=== PATIENT | female | born 1940 | race Caucasian/White ===

== ENCOUNTER → 2016-09-16 | Outpatient (CLI) | payer MEDICARE, OTHER | END | disposition home or self-care (01) | LOC: GMAB 11:13 | PROVIDERS: ATTEND Family Medicine | DX: E03.9 Hypothyroidism, unspecified (principal) ==

== ENCOUNTER → 2016-09-23 | Outpatient (CLI) | payer MEDICARE, OTHER ==
[~2016-09-23] MED LIST: LEVALBUTEROL NEBS 0.63 MG/3 ML VIAL NEB ONE
== END ==
LOC: RESP 10:04
PROVIDERS: ATTEND Family Medicine
DX: J45.30 Mild persistent asthma, uncomplicated (principal)
CPT/HCPCS: 94060; J7614

== ENCOUNTER → 2016-10-09 | Outpatient (CLI) | payer MEDICARE, OTHER ==
--- NOTE | 2016-10-09 16:31 | MAM ---
History: Well woman exam. Date of exam: 10/09/2016 Services provided: Bilateral full field digital screening mammography. CAD, the images were reviewed with R2 computer aided detection. FINDINGS: Glandular tissue is near completely fatty involuted. Comparison with 2012 exam. No dominant mass, architectural distortion or clustered microcalcification. IMPRESSION: Benign exam. Recommendation: Routine annual exam. BIRAD CATEGORY: 2 BENIGN Electronically signed by: Lidia Ridre MD 10/09/2016 4:31 PM CDT Workstation: [id number]
== END | disposition home or self-care (01) ==
LOC: MAMMO 10:57
PROVIDERS: ATTEND Family Medicine
DX: Z12.31 Encounter for screening mammogram for malignant neoplasm of breast (principal)

== ENCOUNTER → 2017-09-20 | Outpatient (CLI) | payer MEDICARE, OTHER | LOC: GMAB 10:45 | PROVIDERS: ATTEND Family Medicine | DX: E03.9 Hypothyroidism, unspecified (principal); I10 Essential (primary) hypertension; E78.2 Mixed hyperlipidemia ==

== ENCOUNTER → 2017-10-25 | Outpatient (CLI) | payer MEDICARE, OTHER ==
--- NOTE | 2017-10-28 15:45 | MAM ---
EXAM DESCRIPTION: 3D Screening BILATERAL : Digital Mammography. CLINICAL HISTORY: 77 years Female SCREENING . No complaints. No family history of breast cancer. Childbirth. Postmenopausal. HRT 5 or more years ago. Bilateral breast reduction.. COMPARISON: 2-D digital screening bilateral study 10/09/2016. Report from prior examination also reviewed. TECHNIQUE: Bilateral CC and MLO projection full-field images, 3-D tomosynthesis digital mammographic technique. CAD not utilized. FINDINGS: The breast parenchymal density pattern is: Almost entirely fatty. No skin thickening or nipple retraction. Bilateral solitary microcalcifications. Left axillary lymph nodes. Stable mass with well-defined, minimally lobulated borders at the 530 position of the anterior third of the left breast. No focal, stellate mass or density, focal asymmetry , and no suspicious microcalcifications bilaterally. Stable mammograms compared to prior study, taking into account differences in mammographic technique IMPRESSION: BI-RADS CATEGORY: 2 - BENIGN FINDINGS. FOLLOW UP: Routine digital bilateral screening, one year interval from October 2017. Written communication explaining the IMPRESSION and follow-up, will be mailed to the patient and referring health care provider. According to the [employer], yearly mammograms are recommended starting at age 40 and continuing as long as a woman is in good health. Any breast change noted on a breast self-exam should be reported promptly to the patient's healthcare provider. Breast MRI is recommended for women with an approximately 20-25% or greater lifetime risk of breast cancer, including women with a strong family history of breast or ovarian cancer and women who have been treated for Hodgkin's disease. A negative mammographic report should not delay tissue diagnosis in patients with significant clinical history or physical findings. Extremely dense breast tissue limits the sensitivity of digital mammography. Electronically signed by: Marco A Auguste MD 10/28/2017 3:44 PM CDT
== END ==
LOC: MAMMO 10:30
PROVIDERS: ATTEND Family Medicine
DX: Z12.31 Encounter for screening mammogram for malignant neoplasm of breast (principal)

== ENCOUNTER → 2018-02-10 | Outpatient (CLI) | payer MEDICARE, OTHER | LOC: GMAE 17:38 | PROVIDERS: ATTEND Family Medicine | DX: E11.9 Type 2 diabetes mellitus without complications (principal); L20.9 Atopic dermatitis, unspecified; L29.8 Other pruritus; L85.3 Xerosis cutis ==

== ENCOUNTER 2018-09-02 20:37 | Observation (INO) | payer MEDICARE, OTHER ==
[2018-09-02] MEDS ORDERED: SODIUM CHLORIDE 0.9% 1000ML 1,000 ML IVS ONE (21:51)
[2018-09-02] MEDS ORDERED: PANTOPRAZOLE SODIUM IV 40 MG VIAL IV ONE (22:25)
[2018-09-02] MEDS ORDERED: SUCRALFATE 1 GM/10 ML 1 GM UD PO ONE (22:25)
[2018-09-02] MEDS ORDERED: cefTRIAXone SODIUM 1 GM in SODIUM CHL 0.9% 50ML MIN-BAG+ 50 ML IVPB ONE (22:55)
[2018-09-02] MEDS ORDERED: CIPROFLOXACIN 500 MG TAB PO ONE (22:55)
[2018-09-02] MEDS ORDERED: cefTRIAXone SODIUM 1 GM VIAL ONE (22:59)
[2018-09-02] MEDS ORDERED: SODIUM CHL 0.9% 50ML MIN-BAG+ 50 ML IVPB ONE (23:00)
--- NOTE | 2018-09-02 23:54 | ED.PDOC ---
History of Present Illness - General Chief Complaint: Syncope/Near Syncope Stated Complaint: passed out at home Time Seen by Provider: 09/02/18 20:39 Source: patient Exam Limitations: no limitations - History of Present Illness Initial Comments: the patient is a 78-year-old female brought in by her daughter secondary to a syncopal episode that lasted approximately 30 seconds area the episode was preceded by feeling flushed with some abdominal cramping and dizzy. Daughter reports that she did go all the way out and did have very brief seizure-like activity. No history of any seizures in the past. She has had approximately 3 or 4 other episodes of syncope and the last 2-3 years. They have never been able to pin down the source for them. She is neurologically intact. She is pleasant and cooperative and interactive. No distress at this time. She does see Dr. Sheets. No history of any really significant arrhythmia. She does still have some very mild epigastric discomfort but no palpable mass. No rebound or peritoneal signs. No history of anymelena or gerhard GI bleed. Timing/Duration: other Severity: moderate Improving Factors: nothing Worsening Factors: nothing Associated Symptoms: syncope Allergies/Adverse Reactions: Allergies Penicillins Allergy (Verified 09/02/18 22:57) Sulfa Antibiotics Allergy (Verified 09/02/18 22:57) narcotics Adverse Reaction (Uncoded 09/02/18 22:57) Review of Systems - Review of Systems Constitutional: States: malaise EENTM: States: no symptoms reported Respiratory: States: no symptoms reported Cardiology: States: no symptoms reported Gastrointestinal/Abdominal: States: see HPI Genitourinary: States: no symptoms reported Musculoskeletal: States: no symptoms reported Skin: States: no symptoms reported Neurological: States: see HPI Endocrine: States: no symptoms reported All other Systems: No Change from Baseline Past Medical History (General) - Patient Medical History Hx Seizures: No Hx Stroke: No Hx Dementia: No Hx Asthma: Yes Hx of COPD: No Hx Cardiac Disorders: Yes Hx Congestive Heart Failure: No Hx Pacemaker: No Hx Hypertension: Yes Hx Thyroid Disease: Yes Hx Diabetes: Yes Hx Gastroesophageal Reflux: No Hx Renal Disease: No Hx Cancer: Yes - CLL that did not require sx Hx of HIV: No Hx Hepatitis C: No Hx MRSA: No Surgical History: cholecystectomy, tonsillectomy, Hysterectomy, other - Vaccination History Hx Tetanus, Diphtheria Vaccination: Yes Hx Influenza Vaccination: Yes Immunizations Up to Date: Yes - Social History Hx Tobacco Use: No Hx Alcohol Use: No Hx Substance Use: No Hx Substance Use Treatment: No Hx Depression: No Feels Threatened In Home Enviroment: No Feels Threatened In a Relationship: No Hx Physical Abuse: No Hx Emotional Abuse: No Hx Suspected Abuse: No - Activities of Daily Living Hospice Agency (if applicable):: None - Female History Patient is a Female of Child Bearing Age (10 -59 yrs old): No - Triage Comment ED Triage Comment: pt is AAOX4, conversing clearly with no diff Family Medical History - Family History Mother Family History: No Known Physical Exam - Physical Exam General Appearance: Alert, Comfortable, No apparent distress Eye Exam: bilateral normal Ears, Nose, Throat: hearing grossly normal, normal ENT inspection Neck: non-tender, full range of motion Respiratory: chest non-tender, lungs clear, normal breath sounds, no respiratory distress, no accessory muscle use Cardiovascular/Chest: normal peripheral pulses, regular rate, rhythm, no edema Peripheral Pulses: radial,right: 2+, radial,left: 2+, dorsalis pedis,right: 2+, dorsalis pedis,left: 2+ Gastrointestinal/Abdominal: non tender - mmild epigastric discomfort palpation. No rebound or peritoneal signs. 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 nml as tested, alert, normal mood/affect, oriented x 3 Skin Exam: normal color Comments: Vital Signs - 24 hr 09/02/18 09/02/18 09/02/18 21:00 21:20 21:23 Temperature 97.5 F L Pulse Rate [ 66 83 67 poulse ox] Respiratory 18 18 16 Rate Blood Pressure 176/74 148/83 170/75 [Left Arm] O2 Sat by Pulse 96 96 95 Oximetry 09/02/18 09/02/18 09/02/18 21:26 22:00 23:00 Temperature Pulse Rate [ 74 65 66 poulse ox] Respiratory 16 20 20 Rate Blood Pressure 152/65 164/83 153/71 [Left Arm] O2 Sat by Pulse 95 99 98 Oximetry Progress - Progress Progress: 09/02/18 23:55 the patient is a 78-year-old female presenting to emergency room secondary to a syncopal episode at home. Source of this is still not entirely certain. The patient is mildly dehydrated based on lab work and did receive a liter of IV fluids. She does additionally have a small urinary tract infection. So far telemetry monitoring has not shown any significant arrhythmia. Head CT and abdominal x-ray appeared to be benign. She has received some stomach medications for some mild GI upset which may have contributed. A stool guaiac may still be prudent on this patient when she is able to give 1. Admit for continued monitoring. - Results/Orders Results/Orders: CT scan of the head shows no acute pathology. Acute abdominal series shows no acute pathology. EKG shows normal axis. Mild sinus bradycardia at 59 bpm. Slow R-wave progression in anterior leads. No definitive ST segment or T-wave changes diagnostic for ischemia. Normal QT interval. Laboratory Tests 09/02/18 09/02/18 09/02/18 21:11 21:11 21:11 WBC 15.7 H RBC 4.22 Hgb 13.1 Hct 39.0 MCV 92.5 MCH 31.0 MCHC 33.5 RDW 13.6 Plt Count 227 MPV 9.3 Absolute Neuts (auto) 6.40 Absolute Lymphs (auto) 6.80 H Absolute Monos (auto) 0.70 Absolute Eos (auto) 1.70 H Absolute Basos (auto) 0.10 Neutrophils % 40.9 L Lymphocytes % 43.7 Monocytes % 4.2 Eosinophils % 10.5 H Basophils % 0.7 Sodium 133 L Potassium 4.3 Chloride 99 L Carbon Dioxide 22 Anion Gap 16.3 BUN 44 H Creatinine 0.98 BUN/Creatinine Ratio 44.9 H Random Glucose 157 H Serum Osmolality 280.8 Lactic Acid 1.2 Calcium 8.8 Magnesium 2.1 Total Bilirubin 0.4 AST 24 ALT 22 Alkaline Phosphatase 68 Creatine Kinase 97 CK-MB (CK-2) 2.7 CK-MB (CK-2) % Not Reportable Troponin I < 0.02 B-Natriuretic Peptide 65.2 Serum Total Protein 7.2 Albumin 4.2 Globulin 3.0 Albumin/Globulin Ratio 1.4 Amylase 23 L Lipase 29 TSH 2.82 Urine Color Urine Appearance Urine pH Ur Specific Thurston Urine Protein Urine Glucose (UA) Urine Ketones Urine Blood Urine Nitrite Urine Bilirubin Urine Urobilinogen Ur Leukocyte Esterase Urine RBC Urine WBC Ur Epithelial Cells Urine Bacteria 09/02/18 22:41 WBC RBC Hgb Hct MCV MCH MCHC RDW Plt Count MPV Absolute Neuts (auto) Absolute Lymphs (auto) Absolute Monos (auto) Absolute Eos (auto) Absolute Basos (auto) Neutrophils % Lymphocytes % Monocytes % Eosinophils % Basophils % Sodium Potassium Chloride Carbon Dioxide Anion Gap BUN Creatinine BUN/Creatinine Ratio Random Glucose Serum Osmolality Lactic Acid Calcium Magnesium Total Bilirubin AST ALT Alkaline Phosphatase Creatine Kinase CK-MB (CK-2) CK-MB (CK-2) % Troponin I B-Natriuretic Peptide Serum Total Protein Albumin Globulin Albumin/Globulin Ratio Amylase Lipase TSH Urine Color Yellow Urine Appearance Clear Urine pH 5.5 Ur Specific Thurston 1.015 Urine Protein Negative Urine Glucose (UA) Negative Urine Ketones Negative Urine Blood Negative Urine Nitrite Negative Urine Bilirubin Negative Urine Urobilinogen 0.2 Ur Leukocyte Esterase Moderate H Urine RBC 3-5 H Urine WBC 30-40 H Ur Epithelial Cells 3-5 Urine Bacteria 2+ H - EKG/XRAY/CT CT Ordered: Yes Departure - Departure Clinical Impression: Dehydration Syncope Qualifiers: Syncope type: unspecified Qualified Code(s): R55 - Syncope and collapse Gastritis Qualifiers: Gastritis type: unspecified gastritis Chronicity: acute Gastritis bleeding: without bleeding Qualified Code(s): K29.00 - Acute gastritis without bleeding Disposition: Admit Patient Departure Forms: ED Discharge - Pt. Copy, Patient Portal Self Enrollment Referrals: Josh Reyes MD [Primary Care Provider] - 1-2 Weeks Decision To Admit - Decistion To Admit Decision to Admit Reason: Medical Nature Decision to Admit Date: 09/02/18 Decision to Admit Time: 23:57
[2018-09-03] MEDS ORDERED: MAGNESIUM HYDROXIDE 30 ML UD PO PRN (01:53)
[2018-09-03] MEDS ORDERED: SODIUM CHLORIDE 0.9% 1000ML 1,000 ML IVS PRN (01:53)
[2018-09-03] MEDS ORDERED: ACETAMINOPHEN 325 MG TAB PO PRN (01:53)
[2018-09-03] MEDS ORDERED: SODIUM CHLORIDE 0.9% (FLUSH) 10 ML SYG IV PRN (01:53)
[2018-09-03] MEDS ORDERED: IV SET AND CAP CHANGE INJ INJ SCH (02:00)
[2018-09-03] MEDS ORDERED: SODIUM CHL 0.9% 50ML MIN-BAG+ 50 ML IVPB ONE (08:55)
[2018-09-03] MEDS ORDERED: cefTRIAXone SODIUM 1 GM VIAL ONE (08:55)
[2018-09-03] MEDS ORDERED: DEXTROSE 50% 25 GM/50 ML SYG IV PRN (09:12)
[2018-09-03] MEDS ORDERED: GLUCAGON INJ 1 MG VIAL SUBCU PRN (09:12)
[2018-09-03] MEDS ORDERED: metFORMIN HCL 500 MG TAB PO SCH ×2 (09:30→17:00)
[2018-09-03] MEDS ORDERED: cefTRIAXone SODIUM 1 GM in SODIUM CHL 0.9% 50ML MIN-BAG+ 50 ML IVPB SCH (10:00)
[2018-09-03] MEDS ORDERED: INSULIN LISPRO 100 UNITS/ML PEN SUBCU SCH (11:30)
--- NOTE | 2018-09-03 15:06 | SSS ---
SUPERVISING PHYSICIAN: Darien Barbosa M.D. CHIEF COMPLAINT: Syncopal episode. HISTORY OF PRESENT ILLNESS: Ms. Jaime is a 78 year-old female patient initially presenting to the Emergency Department on 09/02/18 by her daughter after she had experienced a syncopal episode at home. Her daughter is anesthesiologist and was home at the time and witnessed the event. She noted that the the episode lasted for approximately 30 seconds and prior to the event the patient was feeling flushed. Had some abdominal cramping and dizziness. The patient denies any history of seizures in the past and has noted that she has had similar episodes at least 3 or 4 times over the last 2 to 3 years, but has not yet been diagnosed with anything to explain the syncopal episodes. On admission to the Emergency Room she was neurologically intact. Very pleasant and cooperative. No signs of distress. No signs of postictal state. Laboratory studies showed that she had a mild leukocytosis of 15,700 with a left shift. Hemoglobin 13.1, hematocrit 39.0, platelet count 227,000. Chemistries on admission did show a mildly low sodium at 133 with potassium 4.3, BUN 44, creatinine 0.98 and glucose 157. Magnesium normal at 2.1, calcium 8.8. Liver functions all were within normal limits. Troponin less than 0.02. BNP normal at 65. Lipase was normal at 29, TSH was normal at 2.82, lactic acid was normal at 1.2. Urinalysis did show a moderate amount of leukocyte esterase and microscopic revealed 3 to 5 RBCs, 30 to 40 WBCs with 3 to 5 epithelials and 2+ bacteria. Culture was submitted. Radiology: She did have a CT of the head which without contrast showed no acute pathology per radiology interpretation as well as an acute abdominal series that showed no acute pathology. EKG showed normal rhythm, just mild sinus jaun at 59. No ST or T wave changes indicating ischemic or acute injury pattern. Vital signs on admission showed she was afebrile with temperature 97.5, pulse 66, blood pressure 176/74. She was satting 96% on room air at rest. Given the patient's previous syncopal episode and some mild dehydration as noted on her laboratory studies, Dr. Puckett, [facility]. physician, requested the patient be admitted for IV fluids, close neurological monitoring and telemetry as well as initiation of antibiotics for urinary tract infection. She was placed in observation in stable condition. PAST MEDICAL HISTORY: 1. Asthma, well controlled. 2. Obstructive sleep apnea utilizing CPAP at night. 3. Hypertension. 4. Dyslipidemia. 5. Season and environmental allergies. 6. Chronic lymphocytic leukemia, stable, no prior treatments. 7. Hypothyroidism. 8. Diabetes mellitus type 2 on oral therapy. PAST SURGICAL HISTORY: 1. Hysterectomy. 2. Tonsillectomy. 3. Laparoscopic cholecystectomy. 4. Bilateral breast reduction and abdominoplasty. 5. Ureteral dilation. 6. Cholecystectomy. 7. Cataract, bilateral. HOME MEDICATIONS: 1. Flonase 1 spray both nostrils daily. 2. Simvastatin 20 mg at bedtime. 3. Singulair 10 mg at bedtime. 4. Lisinopril/Hydrochlorothiazide 20-25 mg 1 daily. 5. Metformin 500 mg b.i.d. 6. Lisinopril 100 mg at bedtime. 7. Synthroid 100 mcg at bedtime. 8. ProAir inhaler 2 puffs every 6 hours as needed. 9. Trelegy ellipta 100-62.5-25 mcg 1 inhaled daily. ALLERGIES: PENICILLIN, SULFA ANTIBIOTICS AND SENSITIVE TO ORAL NARCOTICS RESULTING IN SEVERE NAUSEA AND VOMITING. FAMILY HISTORY: Noncontributory. SOCIAL HISTORY: The patient is retired. She is a nonsmoker. No prior tobacco usage. She has limited alcohol usage, less than 1 drink a year. She is and lives in [place], [place]. PHYSICAL EXAMINATION: VITAL SIGNS: Temperature 97.5, pulse 66, blood pressure 176/74. Tilt showed that she had a blood pressure of 148/83 supine, standing she was 152/65 with a heart rate of 74. Respirations 16 to 18 with saturation 95 to 96% on room air. Admission 83.4 kg. GENERAL: The patient appears to be in no acute distress, resting comfortably. She is alert. HEENT: Tympanic membranes are clear bilaterally. Oropharynx was pink, mildly dry mucosal membranes but no lesions. NECK: Supple, non-tender. Full range of motion. No jugular venous distention. CHEST: Clear to auscultation bilaterally without any rhonchi, wheezing or rales. CARDIOVASCULAR: Regular rate and rhythm without appreciable murmurs, gallops, or rubs. ABDOMEN: Soft, non-tender. Positive bowel sounds. EXTREMITIES: Without any clubbing, cyanosis or edema. BACK: No CVA tenderness. No vertebral tenderness. NEUROLOGIC: Cranial nerves II-XII are grossly intact. She is alert and oriented times three. Facial features were symmetrical. Extraocular movements are within normal limits. There is no notable nystagmus. SKIN: [place], warm and dry. LABORATORY: On admission, white count 15,700, prior to discharge was down to 14,100. Hemoglobin and hematocrit were showing to be stable at 13.3 and 40.1 respectively with platelet count 230,000. Differential did show an early left shift. Chemistries showed a mildly low sodium at 133 with potassium 4.8, BUN 44, creatinine 0.98, glucose 157. Liver functions were all within normal limits. Troponin less than 0.02. TSH 2.82. Lipase normal at 29. Prior to discharge electrolytes normalized. Sodium is at 136, potassium 4.0, BUN was down to 30, creatinine 0.95, glucose 120, calcium 8.7. Urinalysis noted a moderate amount of leukocyte esterase with microscopic revealing 3 to 5 RBCs, 30 to 40 WBCs, 3 to 5 epithelials, and 2+ bacteria. MICROBIOLOGY: Urine culture is pending. Influenza type A and B by PCR was negative for both A and B. RADIOLOGY: She had an abdominal series without any acute findings per radiology interpretation. She also had a CT of the head without contrast without any acute findings per radiology interpretation. HOSPITAL COURSE: Ms. Jaime was admitted from the [facility] last night for close observation after she experienced a syncopal episode. She was noted to be dehydrated and was given an initial bolus of saline in the E. R. This was continued with IV fluids on the floor. She had no recurrence of any episodes of syncope and was showing to be clinically stable. She was also found to have a urinary tract infection and she was started on Rocephin. On the morning of discharge she was found to be clinically stable and well enough to continue with outpatient management. ADMISSION ASSESSMENT: 1. Syncopal episode, uncertain etiology, possibly just a vasovagal reaction with no noted residual effects with the patient having a history of several episodes within the last several years with no etiology identified. 2. Urinary tract infection. 3. Asthma, controlled. 4. Electrolyte imbalance with a mild hyponatremia. 5. Obstructive sleep apnea utilizing CPAP. 6. Hypertension. 7. Dyslipidemia. 8. Allergies. 9. Chronic lymphocytic leukemia, stable. No prior treatments. 10. Moderate dehydration possibly contributing to the syncopal episode. DISCHARGE ASSESSMENT: 1. Syncopal episode, uncertain etiology, possibly just a vasovagal reaction with no noted residual effects with the patient having a history of several episodes within the last several years with no etiology identified without any recurrence during observation period. 2. Urinary tract infection with culture pending with the patient being on Ceftin at discharge. 3. Asthma, controlled. 4. Electrolyte imbalance with a mild hyponatremia. 5. Obstructive sleep apnea utilizing CPAP. 6. Hypertension. 7. Dyslipidemia. 8. Allergies. 9. Chronic lymphocytic leukemia, stable. No prior treatments. 10. Moderate dehydration possibly contributing to the syncopal episode. PLAN: The patient was admitted from the E. [facility] to the Medical/Surgical floor. She was initially given a bolus of normal saline. This was continued with IV infusion once on the floor. Labs were rechecked on the morning of discharge with no acute findings. She was started on Rocephin for underlying urinary tract infection with cultures pending. She was found to be clinically stable from the standpoint of the syncopal episode. There was no recurrence. No abnormal rhythms. No neurological changes. It was felt that she could discharge safely to continue with outpatient management. She was to continue an ADA diet as tolerated. Increase activity as tolerated. She was instructed to followup with Dr. Gama in the following week after discharge and to return to the [facility] should she have any worsening of her symptoms or other concerning symptoms. #[id number] [facility]
[2018-09-03 15:10] VITALS: TEMP 98.6
[2018-09-03 15:11] VITALS: BP 154/76; O2SAT 90
[2018-09-03] MEDS ORDERED: LEVOTHYROXINE SODIUM 0.1 MG TAB PO SCH (21:00)
[2018-09-03] MEDS ORDERED: FLUTICASONE PROP 0.05% NASAL 16 GM BTTL BNAS SCH (21:00)
[2018-09-03] MEDS ORDERED: SIMVASTATIN 20 MG TAB PO SCH (21:00)
[2018-09-03] MEDS ORDERED: LISINOPRIL 10 MG TAB PO SCH (21:00)
[2018-09-03] MEDS ORDERED: MONTELUKAST 10 MG TAB PO SCH (21:00)
[2018-09-04] MEDS ORDERED: NON-FORMULARY MEDICATION 1 EA MIS (Lisinopril & Hydrochlorothiazi [Lisinopril/Hctz 20-25 M PO SCH (09:00)
[2018-09-04] MEDS ORDERED: hydroCHLOROthiazide 25 MG TAB PO SCH (09:00)
[2018-09-04] MEDS ORDERED: LISINOPRIL 10 MG TAB PO SCH (09:00)
== END 2018-09-03 14:00 | disposition home or self-care (01) ==
LOC: ER 20:37 → MS 09-03 00:50
PROVIDERS: ADMIT Nurse Practitioner Family; ATTEND Nurse Practitioner Family
DX: N39.0 Urinary tract infection, site not specified (principal); B96.89 Other specified bacterial agents as the cause of diseases classified elsewhere; R55 Syncope and collapse; E87.1 Hypo-osmolality and hyponatremia; E87.8 Other disorders of electrolyte and fluid balance, not elsewhere classified; E86.0 Dehydration; K29.00 Acute gastritis without bleeding; G47.33 Obstructive sleep apnea (adult) (pediatric); I10 Essential (primary) hypertension; E11.9 Type 2 diabetes mellitus without complications; E78.5 Hyperlipidemia, unspecified; J45.909 Unspecified asthma, uncomplicated; E03.9 Hypothyroidism, unspecified; C91.10 Chronic lymphocytic leukemia of B-cell type not having achieved remission; Z79.84 Long term (current) use of oral hypoglycemic drugs; Z79.51 Long term (current) use of inhaled steroids; Z79.899 Other long term (current) drug therapy; Z79.890 Hormone replacement therapy; Z88.0 Allergy status to penicillin; Z88.2 Allergy status to sulfonamides; Z88.5 Allergy status to narcotic agent
CPT/HCPCS: 96361; 96365; 96375; 96376; J0696 ×2; J7030 ×2; J7050 ×2; 80048; 82553; 80053; 87086; 36415 ×2; 82150; 81001; 85025 ×2; 82550; 83690; 83735; 84443; 84484; 83880; 36416; 83605; 74019; 70450; 94760; 94762; 99285; 93005; 87502

== ENCOUNTER → 2019-02-16 | Outpatient (CLI) | payer MEDICARE, OTHER ==
--- NOTE | 2019-02-21 14:37 | MAM ---
EXAM DESCRIPTION: 3D Screening BILATERAL : Digital Mammography. CLINICAL HISTORY: 78 years Female SCREENING . No complaints. No personal or family history of breast cancer. Menarche age 11. Childbirth. Postmenopausal 35+ years. HRT 5 or more years ago. Bilateral breast reduction. Lifetime risk of developing breast cancer (Tyrer-Cuzick model)(%): 7.2. COMPARISON: Bilateral screening digital breast tomosynthesis 10/25/2017 and 2-D digital screening bilateral mammography 10/09/2016. TECHNIQUE: Bilateral CC and MLO projection full-field images, digital tomosynthesis mammographic technique. Bilateral digital 2-D full-field MLO images. CAD not available for tomosynthesis or 2-D images. FINDINGS: The breast parenchymal density pattern is: Almost entirely fatty. No skin thickening or nipple retraction. Stable mostly circumscribed and partially lobulated mass density in the lower outer quadrant right breast at the 5:00 position. Probably a lymph node. Scattered bilateral similar densities. Bilateral cyst skin moles indicated by skin markers. Left axillary lymph nodes. Bilateral vascular calcifications. No new focal, stellate mass or density, focal asymmetry , and no suspicious microcalcifications bilaterally. Stable mammograms compared to prior study. IMPRESSION: Benign exam. BIRAD CATEGORY: 2 BENIGN FINDINGS. RECOMMENDATIONS: FOLLOW UP: Routine digital bilateral mammographic screening, one year interval from February 2019. Written communication explaining the IMPRESSION and follow-up, will be mailed to the patient and referring health care provider. According to the [employer], yearly mammograms are recommended starting at age 40 and continuing as long as a woman is in good health. Any breast change noted on a breast self-exam should be reported promptly to the patient's healthcare provider. Breast MRI is recommended for women with an approximately 20-25% or greater lifetime risk of breast cancer, including women with a strong family history of breast or ovarian cancer and women who have been treated for Hodgkin's disease. A negative mammographic report should not delay tissue diagnosis in patients with significant clinical history or physical findings. Extremely dense breast tissue limits the sensitivity of digital mammography. Electronically signed by: Marco A Auguste MD 02/21/2019 2:36 PM CDT
== END ==
LOC: MAMMO 11:00
PROVIDERS: ATTEND Family Medicine
DX: Z12.31 Encounter for screening mammogram for malignant neoplasm of breast (principal)

== ENCOUNTER → 2019-03-30 | Outpatient (CLI) | payer MEDICARE, OTHER | LOC: GMAE 10:38 | PROVIDERS: ATTEND Family Medicine | DX: E03.9 Hypothyroidism, unspecified (principal); E11.9 Type 2 diabetes mellitus without complications ==

== ENCOUNTER → 2019-10-03 | Outpatient (CLI) | payer MEDICARE, OTHER | LOC: GMAE 11:30 | PROVIDERS: ATTEND Family Medicine | DX: E03.9 Hypothyroidism, unspecified (principal); E11.9 Type 2 diabetes mellitus without complications; I10 Essential (primary) hypertension; E78.5 Hyperlipidemia, unspecified ==

== ENCOUNTER → 2019-11-06 | Outpatient (CLI) | payer MEDICARE, OTHER | LOC: GMAE 10:57 | PROVIDERS: ATTEND Family Medicine | DX: C91.10 Chronic lymphocytic leukemia of B-cell type not having achieved remission (principal) ==